=== PATIENT | female | born 1985 | race Caucasian/White ===

== ENCOUNTER 2022-04-12 06:11 | Emergency (ER) | payer OTHER, SELFPAY ==
--- NOTE | ~2022-04-12 | XR_ITS ---
EXAMINATION: XR chest 2V DATE: 04/12/2022 06:55 INDICATION: Midsternal chest pain TECHNIQUE: PA and lateral views of the chest were obtained. COMPARISON: None FINDINGS: The lungs are clear with no focal airspace opacities, pulmonary edema, pleural effusion or pneumothor ax. The cardiomediastinal silhouette is normal. Visualized bones and soft tissues are unremarkable. IMPRESSION: 1. Normal chest radiograph. Reviewed, dictated and finalized at location A. IMPRESSION: 1. Normal chest radiograph.
--- NOTE | ~2022-04-12 | CT_ITS ---
EXAMINATION: CTA chest PE protocol DATE: 04/12/2022 09:04 INDICATION: Midsternal chest pain TECHNIQUE: Computed tomography angiography (CTA) of the chest was performed with 100 mL Omnipaque-350 intravenous contrast timed to evaluate the pulmonary arteries. Coronal maximum intensity projection 3D-reconstructions were created by the technologist. The dose-length product (DLP) was 218.70 mGy-cm. Automated exposure control and iterative reconstruction technique were employed. COMPARISON: None. FINDINGS: The pulmonary arteries are well-opacified. No pulmonary embolism is identified. There is mi ld atelectasis of the lungs. No pleural effusion or pneumothorax. No pathologically enlarged thoracic lymph nodes are identified. The heart size is normal. IMPRESSION: 1. No pulmonary embolism or acute cardiopulmonary abnormality. Reviewed, dictated and finalized at location B.
[2022-04-12 06:09] VITALS: BP 121/67; PULSE 92; RESP 14; TEMP 36.8; O2SAT 100
--- NOTE | 2022-04-12 06:12 | ECG_ITS ---
Measurements Intervals [place] Rate: 84 P: 42 KS: 157 QRS: 41 QRSD: 95 T: -4 QT: 368 QTc: 436 Interpretive Statements SINUS RHYTHM INCOMPLETE RIGHT BUNDLE BRANCH BLOCK BORDERLINE ST-T WAVE ABNORMALITY- ANTEROLAT/INF LEADS BORDERLINE ECG NO PREVIOUS ECG AVAILABLE FOR COMPARISON Electronically Signed On 04-12-2022 6:40:48 CDT by Bryce Ortiz D.O.
[2022-04-12 06:31] VITALS: PULSE 83
[2022-04-12 06:34] LABS: Basophils Absolute Auto 0.1 K/mm3 (0.0-0.1); Basophils Percent Auto 0.7 % (0.2-1.2); Eosinophils Absolute Auto 0.6 K/mm3 (0-0.3); Eosinophils Percent Auto 7.8 % (0-4.4); Hematocrit 31.5 % (37.0-47.0); Hemoglobin 10.5 g/dL (12.0-15.0); Immature Granulocyte Absolute 0.02 K/mm3 (0.00-0.031); Immature Granulocyte Percent A 0.3 % (0-0.5); Lymphocytes Absolute Auto 1.26 K/mm3 (0.9-3.2); Lymphocytes Percent Auto 17.5 % (18.3-44.2); Mean Corpuscular HGB Conc 33.3 g/dl (32-36); Mean Corpuscular Hemoglobin 32.9 pg (26-34); Mean Corpuscular Volume 98.7 fl (80-100); Mean Platelet Volume 8.5 fl (7.4-10.4); Monocytes Absolute Auto 0.6 K/mm3 (0.1-0.6); Monocytes Percent Auto 7.9 % (2.6-8.5); Neutrophils Absolute Auto 4.8 K/mm3 (1.3-6.7); Neutrophils Percent Auto 65.8 % (45.5-73.1); Platelet Count Result 334 k/mm3 (150-375); Red Blood Count 3.19 M/mm3 (4.2-5.4); Red Cell Distribution Width 12.4 % (11.5-14.5); White Blood Count 7.2 K/mm3 (4.5-10.0)
[2022-04-12 06:49] LABS: Partial Thromboplastin Time 28.6 SECONDS (22.3-36.8)
[2022-04-12 06:50] LABS: Alanine Aminotransferase 12 U/L (6-35); Albumin Level 4.5 g/dL (3.5-5.1); Alkaline Phosphatase 53 U/L (38-126); Anion Gap 16 mmol/L (8-16); Aspartate Amino Transferase 25 U/L (14-36); Bilirubin,Total 0.2 mg/dL (0.2-1.3); Blood Urea Nitrogen 15 mg/dL (7-17); Calcium 8.6 mg/dL (8.4-10.2); Carbon Dioxide 23 mmol/L (22-30); Chloride 102 mmol/L (98-107); Estimated CRCL calculation 75 ml/min; Estimated Glomerular Filt Rate > 60; Glucose 129 mg/dL (65-110); Lipase 58 U/L (23-300); Potassium 3.7 mmol/L (3.4-5.0); Sodium 141 mmol/L (137-145)
[2022-04-12 07:01] LABS: Troponin I < 0.012 ng/mL (0.000-0.034)
[2022-04-12] MEDS: KETOROLAC 30 MG/ML VIAL (*BKC) IV PUSH (07:30)
[2022-04-12 07:31] VITALS: BP 121/76; PULSE 88; RESP 18; O2SAT 100
--- NOTE | 2022-04-12 07:55 | ED.CHESTPAIN ---
HPI - Chest Pain General Chief Complaint: Chest Pain Stated Complaint: CP, BACK PAIN Time Seen by Provider: 04/12/22 07:06 Source: patient and RN notes reviewed Mode of arrival: ambulatory Limitations: no limitations History of Present Illness HPI narrative: This is a 36 year old female who presents for evaluation of back pain and chest pain. Patient developed mid back pain a few weeks ago. She reports history of chronic back pain but this pain seems worse. Her pain is constant and worse with movement and twisting. She has taken tylenol for her pain. She denies this back pain radiating. She denies associated numbness, tingling, fever, chills. She reports she developed sharp midsternal chest pain this morning and it has been constant. She also reports this pain is worse with movement. She has not taken any medication for her pain today. She denies associated cough, sob, leg swelling of calf pain. She is a [employer] truck driver. She denies taking OCP. Related Data Home Medications Medication Instructions Recorded Confirmed trazodone 150 mg tablet mg 04/12/22 Allergies Allergy/AdvReac Type Severity Reaction Status Date / Time Penicillins Allergy Hives Verified 04/12/22 06:27 Review of Systems Review of Systems: All systems reviewed & are unremarkable except as noted in HPI and below Constitutional: Constitutional: Denies chills, Denies fatigue and Denies fever(s) ENT: Denies nasal congestion and Denies sore throat Cardiovascular: Cardiovascular: Reports chest pain, Denies rapid heart rate, Denies radiating jaw, neck or arm pain and Denies slow heart rate Respiratory: Respiratory: Denies cough and Denies dyspnea Gastrointestinal: Gastrointestinal: Denies abdominal pain, Denies bloating, Denies nausea and Denies vomiting Musculoskeletal: Musculoskeletal: Reports back pain Neurologic: Denies headache(s) and Denies focal weakness PMFSH Past Medical History Medical History (Updated 04/12/22 @ 10:22 by Inge Melchor MD) Patient denies medical problems Surgical History Surgical History (Updated 04/12/22 @ 09:05 by Inge Melchor MD) No pertinent past surgical history Social History Social History (Updated 04/12/22 @ 09:05 by Inge Melchor MD) Smoking status: Never smoker Exam Const: General: no acute distress and alert Nutritional Appearance: well nourished Orientation/consciousness: patient oriented x3 Limitations: no limitations HENMT: Head: normal to inspection Ears: external ears normal Face and sinus: normal facial exam Eyes: Conjunctivae: conjunctivae normal EOM: EOMs intact bilaterally Chest: Chest palpation & inspection: normal inspection of the chest Resp: Effort & Inspection: normal respiratory effort Auscultation: clear to auscultation bilaterally Cardio: Rate: regular rate Rhythm: regular rhythm Heart sounds: no murmurs GI: GI Palp: Yes Soft to palpation, No Tenderness to palpation present (GI) and No Guarding due to palpation present (GI) Auscultation: normal bowel sounds Back/Spine/Pelvis: Back: no CVA tenderness Skin: General skin exam: normal color Rashes: no rashes Neuro: General: patient oriented x3, moves all extremities and CN's II-XI intact bilaterally Cranial nerves: Yes Nystagmus not present Extrem: General: normal to inspection Psych: Mental Status: mental status grossly normal Affect: normal affect Attitude: cooperative Course Reevaluation(s) Reevaluation #1: I Discussed with patient that she can be discharged. She is low risk acs and chest pain is atypical. She will follow up with PCP in [place] Date: 04/12/22 Time: 10:21 Vital Signs Vital signs: Vital Signs Temperature 98.2 F 04/12/22 06:09 Pulse Rate 92 04/12/22 06:09 Respiratory Rate 14 04/12/22 06:09 Blood Pressure 121/67 04/12/22 06:09 Pulse Oximetry 100 04/12/22 06:09 Oxygen Delivery Room Air 04/12/22 06:09 Temperature 98.2 F 04/12/22 06:09 Puls
[2022-04-12 08:01] VITALS: BP 124/78; PULSE 91; RESP 17; O2SAT 100
[2022-04-12 08:01] LABS: D Dimer 0.51 ug/mL (<0.48)
[2022-04-12 09:00] VITALS: BP 120/67; PULSE 74; RESP 16; O2SAT 100
[2022-04-12 09:59] LABS: Troponin I < 0.012 ng/mL (0.000-0.034)
[2022-04-12 10:35] VITALS: BP 119/73; PULSE 72; RESP 16; O2SAT 98
== END 2022-04-12 10:35 | disposition home or self-care (01) ==
PROVIDERS: Emergency Medicine; Emergency Provider General Practice
DX: M54.6 Pain in thoracic spine (principal); R07.9 Chest pain, unspecified; I45.10 Unspecified right bundle-branch block; R94.31 Abnormal electrocardiogram [ECG] [EKG]
CPT/HCPCS: 36415; 71046; 71275; 80053; 81025; 83690; 84484; 85025; 85380; 85610; 85730; 93005; 96374; 99284; J1885; Q9967